=== PATIENT | male | born 1940 | race Caucasian/White ===

== ENCOUNTER 2020-09-19 09:33 | Outpatient (REF) | payer MEDICARE, SELFPAY ==
[2020-09-19 10:26] LABS: MANUAL DIFF FLAG NO
[2020-09-19 10:42] LABS: Basophils Percent Auto 0.8 % (0-2); Eosinophils Absolute Auto 0.4 X10*3/uL (0.0-0.4); Eosinophils Percent Auto 7.1 % (0-4); Hematocrit 46.6 % (42-52); Hemoglobin 15.3 g/dl (14.0-18.0); Imm Gran Abs Auto 0.01 X10*3/uL (0.00-0.03); Imm Gran Pct Auto 0.2 % (0.0-0.4); Lymphocytes Percent Auto 41.2 % (20-40); Mean Corpuscular HGB Conc 32.8 g/dl (31.0-36.0); Mean Corpuscular Hemoglobin 30.4 pg (27.0-33.0); Mean Corpuscular Volume 92.6 fL (80-98); Mean Platelet Volume 11.5 fL (9.4-12.4); Monocytes Absolute Auto 0.5 X10*3/uL (0.1-1.2); Monocytes Percent Auto 10.4 % (2-11); Neutrophils Percent Auto 40.3 % (45-73); Platelet Count 186 X10*3/uL (160-400); Red Blood Count 5.03 X10*6/uL (4.60-5.80); Red Cell Distribution Width 12.7 % (11.0-16.0); White Blood Count 4.9 X10*3/uL (4.8-10.8)
[2020-09-19 11:01] LABS: Glucose Urine UA NEG (NEG); Leukocyte Esterase Urine NEG (NEG); Nitrite Urine NEG (NEG); Specific Gravity - Urine 1.025 (1.005-1.025); Urine Blood NEG (NEG); Urine Ketones NEG (NEG); Urine Protein NEG (NEG-TRACE)
[2020-09-19 11:07] LABS: Appearance Urine CLEAR; Color Urine YELLOW
[2020-09-19 11:09] LABS: Estimated Average Glucose 117 mg/dL; Hemoglobin A1C 149.9693 umol/L; Hemoglobin A1c % 5.7 %
[2020-09-19 11:28] LABS: Alanine Aminotransferase 22 U/L (0-40); Albumin Level 4.3 g/dL (3.5-5.0); Alkaline Phosphatase 106 U/L (39-117); Anion Gap 12 (12-20); Aspartate Amino Transferase 18 U/L (5-37); Bilirubin Total 0.4 mg/dL (0.0-1.0); Blood Urea Nitrogen 23 mg/dL (9-16); Calcium 8.9 mg/dL (8.4-10.2); Carbon Dioxide 26 mmol/L (22-29); Chloride 105 mmol/L (96-108); Cholesterol 231 mg/dL; Estimated Glomerular Filt Rate > 60; Glucose Fasting 93 mg/dL (60-99); HDL Cholesterol 44 mg/dL; LDL Cholesterol Calculated 168 mg/dl; Potassium 4.3 mmol/L (3.3-5.1); Sodium 139 mmol/L (135-145); Total Protein 6.6 g/dL (6.5-8.0); Triglycerides 97 mg/dL
[2020-09-19 11:39] LABS: PSA,Total (Free>4and<10) 1.61 ng/mL (0.00-4.00)
[2020-09-19 11:57] LABS: Creatinine Urine 98.11 mg/dL; Microalbum/Creatinine Ratio Ur 13.2 ug/mg cr
[2020-09-19 13:08] LABS: Reflex LDLD? No
== END 2020-09-19 09:34 | disposition home or self-care (01) ==
LOC: HO.LNP 09:33
PROVIDERS: PCP Internal Medicine; Visit Provider Internal Medicine
DX: Z00.00 Encounter for general adult medical examination without abnormal findings (principal); Z12.5 Encounter for screening for malignant neoplasm of prostate; E78.00 Pure hypercholesterolemia, unspecified; R73.03 Prediabetes; I10 Essential (primary) hypertension
CPT/HCPCS: 80053; 80061; 81003; 82043; 83036; 84153; 85025

== ENCOUNTER 2021-06-20 12:03 | Outpatient (REF) | payer MEDICARE, SELFPAY ==
[2021-06-20 12:30] LABS: Estimated Average Glucose 117 mg/dL; Hemoglobin A1c % 5.7 %
[2021-06-20 12:39] LABS: Alanine Aminotransferase 19 U/L (0-40); Albumin Level 4.4 g/dL (3.5-5.0); Alkaline Phosphatase 111 U/L (39-117); Aspartate Amino Transferase 18 U/L (5-37); Bilirubin Direct 0.3 mg/dL (0.0-0.5); Bilirubin Total 0.9 mg/dL (0.0-1.0); Cholesterol 228 mg/dL; Glucose Fasting 98 mg/dL (60-99); HDL Cholesterol 43 mg/dL; LDL Cholesterol Calculated 165 mg/dl; Total Protein 6.9 g/dL (6.5-8.0); Triglycerides 102 mg/dL
[2021-06-20 12:57] LABS: Reflex LDLD? No
== END 2021-06-20 12:04 | disposition home or self-care (01) ==
LOC: HO.LNP 12:03
PROVIDERS: Visit Provider Internal Medicine
DX: R73.03 Prediabetes (principal); E78.00 Pure hypercholesterolemia, unspecified
CPT/HCPCS: 80061; 80076; 82947; 83036

== ENCOUNTER 2021-08-08 10:41 | Outpatient (REF) | payer MEDICARE, SELFPAY ==
[2021-08-08 10:44] LABS: MANUAL DIFF FLAG NO
[2021-08-08 11:33] LABS: Basophils Absolute Auto 0.1 X10*3/uL (0.0-0.2); Eosinophils Absolute Auto 0.2 X10*3/uL (0.0-0.4); Eosinophils Percent Auto 4.6 % (0-4); Hematocrit 48.2 % (42.0-52.0); Hemoglobin 15.7 g/dl (14.0-18.0); Imm Gran Abs Auto 0.01 X10*3/uL (0.00-0.03); Imm Gran Pct Auto 0.2 % (0.0-0.4); Lymphocytes Absolute Auto 2.2 X10*3/uL (1.2-4.9); Lymphocytes Percent Auto 43.9 % (20-40); Mean Corpuscular HGB Conc 32.6 g/dl (31.0-36.0); Mean Corpuscular Hemoglobin 30.4 pg (27.0-33.0); Mean Corpuscular Volume 93.2 fL (80.0-98.0); Mean Platelet Volume 11.1 fL (9.4-12.4); Monocytes Absolute Auto 0.4 X10*3/uL (0.1-1.2); Monocytes Percent Auto 8.8 % (2-11); Neutrophils Absolute Auto 2.1 x10*3/uL (2.0-8.3); Neutrophils Percent Auto 41.5 % (45-73); Platelet Count 219 X10*3/uL (160-400); Red Blood Count 5.17 X10*6/uL (4.60-5.80); Red Cell Distribution Width 12.7 % (11.0-16.0)
[2021-08-08 11:38] LABS: Estimated Average Glucose 114 mg/dL; Hemoglobin A1c % 5.6 %
[2021-08-08 11:49] LABS: Appearance Urine CLEAR; Color Urine YELLOW; Glucose Urine UA NEG (NEG); Leukocyte Esterase Urine NEG (NEG); Nitrite Urine NEG (NEG); PH 6.5 (5.0-8.0); Urine Blood NEG (NEG); Urine Ketones NEG (NEG); Urine Protein NEG (NEG-TRACE)
[2021-08-08 11:57] LABS: Alanine Aminotransferase 20 U/L (0-40); Albumin Level 4.5 g/dL (3.5-5.0); Alkaline Phosphatase 106 U/L (39-117); Anion Gap 12 (12-20); Aspartate Amino Transferase 19 U/L (5-37); Bilirubin Total 0.6 mg/dL (0.0-1.0); Blood Urea Nitrogen 19 mg/dL (9-16); Calcium 9.4 mg/dL (8.4-10.2); Carbon Dioxide 27 mmol/L (22-29); Chloride 104 mmol/L (96-108); Cholesterol 231 mg/dL; Estimated Glomerular Filt Rate > 60; Glucose Fasting 100 mg/dL (60-99); HDL Cholesterol 44 mg/dL; LDL Cholesterol Calculated 167 mg/dl; Sodium 139 mmol/L (135-145); Triglycerides 100 mg/dL
[2021-08-08 12:37] LABS: Microalbum/Creatinine Ratio Ur 10.6 ug/mg cr
[2021-08-08 13:14] LABS: PSA,Total (Free>4and<10) 1.89 ng/mL (0.00-4.00)
== END 2021-08-08 10:42 | disposition home or self-care (01) ==
LOC: HO.LNP 10:41
PROVIDERS: Visit Provider Internal Medicine
DX: Z00.00 Encounter for general adult medical examination without abnormal findings (principal); Z12.5 Encounter for screening for malignant neoplasm of prostate; R73.03 Prediabetes; E78.00 Pure hypercholesterolemia, unspecified; I10 Essential (primary) hypertension
CPT/HCPCS: 80053; 80061; 81003; 82043; 83036; 84153; 85025

== ENCOUNTER 2022-07-06 10:57 | Outpatient (REF) | payer MEDICARE, SELFPAY ==
[2022-07-06 11:01] LABS: MANUAL DIFF FLAG NO
[2022-07-06 11:44] LABS: Basophils Absolute Auto 0.1 X10*3/uL (0.0-0.2); Basophils Percent Auto 1.4 % (0-2); Eosinophils Absolute Auto 0.3 X10*3/uL (0.0-0.4); Eosinophils Percent Auto 4.9 % (0-4); Hematocrit 50.6 % (42.0-52.0); Hemoglobin 16.7 g/dl (14.0-18.0); Imm Gran Abs Auto 0.02 X10*3/uL (0.00-0.03); Imm Gran Pct Auto 0.4 % (0.0-0.4); Lymphocytes Absolute Auto 2.1 X10*3/uL (1.2-4.9); Lymphocytes Percent Auto 41.6 % (20-40); Mean Corpuscular Hemoglobin 30.1 pg (27.0-33.0); Mean Corpuscular Volume 91.3 fL (80.0-98.0); Mean Platelet Volume 11.3 fL (9.4-12.4); Monocytes Absolute Auto 0.6 X10*3/uL (0.1-1.2); Neutrophils Absolute Auto 2.1 x10*3/uL (2.0-8.3); Neutrophils Percent Auto 40.7 % (45-73); Platelet Count 187 X10*3/uL (160-400); Red Blood Count 5.54 X10*6/uL (4.60-5.80); Red Cell Distribution Width 12.6 % (11.0-16.0); White Blood Count 5.1 X10*3/uL (4.8-10.8)
[2022-07-06 11:54] LABS: Appearance Urine Clear; Color Urine Yellow; Glucose Urine UA Negative (Negative); Leukocyte Esterase Urine Negative (Negative); Nitrite Urine Negative (Negative); PH 6.5 (5.0-9.0); Urine Blood Negative (Negative); Urine Ketones Negative (Negative); Urine Protein Negative (Neg-Trace)
[2022-07-06 12:05] LABS: Estimated Average Glucose 120 mg/dL; Hemoglobin A1c % 5.8 %
[2022-07-06 12:06] LABS: Alanine Aminotransferase 20 U/L (0-40); Albumin Level 4.4 g/dL (3.5-5.0); Alkaline Phosphatase 109 U/L (39-117); Anion Gap 14 (12-20); Aspartate Amino Transferase 19 U/L (5-37); Bilirubin Total 0.9 mg/dL (0.0-1.0); Blood Urea Nitrogen 19 mg/dL (9-16); Calcium 9.4 mg/dL (8.4-10.2); Carbon Dioxide 27 mmol/L (22-29); Chloride 104 mmol/L (96-108); Cholesterol 263 mg/dL; Estimated Glomerular Filt Rate > 60; Glucose Fasting 102 mg/dL (60-99); HDL Cholesterol 46 mg/dL; LDL Cholesterol Calculated 198 mg/dl; Potassium 4.8 mmol/L (3.3-5.1); Sodium 140 mmol/L (135-145); Total Protein 6.8 g/dL (6.5-8.0); Triglycerides 99 mg/dL
[2022-07-06 12:12] LABS: PSA,Total (Free>4and<10) 1.96 ng/mL (0.00-4.00)
[2022-07-06 12:24] LABS: Creatinine Urine 150.88 mg/dL; Microalbum/Creatinine Ratio Ur 7.2 ug/mg cr
== END 2022-07-06 10:58 | disposition home or self-care (01) ==
LOC: HO.LNP 10:57
PROVIDERS: Visit Provider Internal Medicine
DX: Z00.00 Encounter for general adult medical examination without abnormal findings (principal); R73.09 Other abnormal glucose; E78.00 Pure hypercholesterolemia, unspecified; I10 Essential (primary) hypertension; Z12.5 Encounter for screening for malignant neoplasm of prostate
CPT/HCPCS: 80053; 80061; 81003; 82043; 83036; 84153; 85025

== ENCOUNTER 2023-07-12 10:50 | Outpatient (REF) | payer MEDICARE, SELFPAY ==
[2023-07-12 10:53] LABS: MANUAL DIFF FLAG NO
[2023-07-12 11:22] LABS: Appearance Urine Clear; Basophils Percent Auto 0.8 % (0-2); Color Urine Yellow; Eosinophils Absolute Auto 0.3 X10*3/uL (0.0-0.4); Eosinophils Percent Auto 5.1 % (0-4); Glucose Urine UA Negative (Negative); Hematocrit 47.9 % (42.0-52.0); Hemoglobin 15.9 g/dl (14.0-18.0); Imm Gran Abs Auto 0.02 X10*3/uL (0.00-0.03); Imm Gran Pct Auto 0.4 % (0.0-0.4); Leukocyte Esterase Urine Negative (Negative); Lymphocytes Percent Auto 38.9 % (20-40); Mean Corpuscular HGB Conc 33.2 g/dl (31.0-36.0); Mean Corpuscular Hemoglobin 30.4 pg (27.0-33.0); Mean Corpuscular Volume 91.6 fL (80.0-98.0); Mean Platelet Volume 11.2 fL (9.4-12.4); Monocytes Absolute Auto 0.6 X10*3/uL (0.1-1.2); Monocytes Percent Auto 10.9 % (2-11); Neutrophils Absolute Auto 2.3 x10*3/uL (2.0-8.3); Neutrophils Percent Auto 43.9 % (45-73); Nitrite Urine Negative (Negative); PH 6.5 (5.0-9.0); Platelet Count 213 X10*3/uL (160-400); Red Blood Count 5.23 X10*6/uL (4.60-5.80); Red Cell Distribution Width 12.8 % (11.0-16.0); Specific Gravity - Urine 1.025 (1.005-1.025); Urine Blood Negative (Negative); Urine Ketones Negative (Negative); Urine Protein Negative (Neg-Trace); White Blood Count 5.1 X10*3/uL (4.8-10.8)
[2023-07-12 11:33] LABS: Bacteria Urine None Seen (None Seen); Hyaline Casts Urine 0-2 /LPF (0-2); RBC Urine 0-2 /HPF (0-2); Squamous Epithelial Cell Urine 0-2 /HPF (0-2); WBC Urine 0-5 /HPF (0-5)
[2023-07-12 12:02] LABS: Estimated Average Glucose 108 mg/dL; Hemoglobin A1c % 5.4 % (<6.0)
[2023-07-12 12:34] LABS: PSA,Total (Free>4and<10) 1.78 ng/mL (0.00-4.00)
[2023-07-12 12:50] LABS: Creatinine Urine 154.95 mg/dL; Microalbum/Creatinine Ratio Ur 7.7 ug/mg cr (<30)
[2023-07-12 13:06] LABS: Alanine Aminotransferase 19 U/L (0-40); Albumin Level 4.3 g/dL (3.5-5.0); Alkaline Phosphatase 95 U/L (39-117); Anion Gap 10 (12-20); Aspartate Amino Transferase 18 U/L (5-37); Bilirubin Total 0.6 mg/dL (0.0-1.0); Blood Urea Nitrogen 31 mg/dL (9-16); Carbon Dioxide 27 mmol/L (22-29); Chloride 109 mmol/L (96-108); Cholesterol 244 mg/dL (<200); Estimated Glomerular Filt Rate > 60; Glucose Fasting 95 mg/dL (60-99); HDL Cholesterol 45 mg/dL (>40); LDL Cholesterol Calculated 175 mg/dL (<100); Potassium 3.9 mmol/L (3.3-5.1); Sodium 142 mmol/L (135-145); Total Protein 6.7 g/dL (6.5-8.0); Triglycerides 123 mg/dL (<150)
== END 2023-07-12 10:51 | disposition home or self-care (01) ==
LOC: HO.LNP 10:50
PROVIDERS: Visit Provider Internal Medicine
DX: Z00.00 Encounter for general adult medical examination without abnormal findings (principal); R73.03 Prediabetes; E78.00 Pure hypercholesterolemia, unspecified; Z12.5 Encounter for screening for malignant neoplasm of prostate
CPT/HCPCS: 80053; 80061; 81001; 82043; 82570; 83036; 84153; 85025

== ENCOUNTER 2023-08-13 11:23 | Outpatient (REF) | payer MEDICARE, SELFPAY ==
[2023-08-13 12:11] LABS: Blood Urea Nitrogen 21 mg/dL (9-16); Estimated Glomerular Filt Rate > 60
== END 2023-08-13 11:24 | disposition home or self-care (01) ==
LOC: HO.LNP 11:23
PROVIDERS: Visit Provider Internal Medicine
DX: R79.9 Abnormal finding of blood chemistry, unspecified (principal)
CPT/HCPCS: 82565; 84520

== ENCOUNTER 2024-03-07 11:39 | Outpatient (REF) | payer MEDICARE, SELFPAY ==
[2024-03-07 12:48] LABS: Alanine Aminotransferase 25 U/L (0-40); Albumin Level 4.4 g/dL (3.5-5.0); Alkaline Phosphatase 124 U/L (39-117); Aspartate Amino Transferase 26 U/L (5-37); Bilirubin Direct 0.3 mg/dL (0.0-0.5); Bilirubin Total 0.8 mg/dL (0.0-1.0); Blood Urea Nitrogen 15 mg/dL (9-16); Cholesterol 126 mg/dL (<200); Estimated Glomerular Filt Rate > 60; HDL Cholesterol 47 mg/dL (>40); LDL Cholesterol Calculated 68 mg/dL (<100); Triglycerides 56 mg/dL (<150)
[2024-03-07 14:21] LABS: Reflex LDLD? No
== END 2024-03-07 11:40 | disposition home or self-care (01) ==
LOC: HO.LNP 11:39
PROVIDERS: Visit Provider Internal Medicine
DX: E78.00 Pure hypercholesterolemia, unspecified (principal); I10 Essential (primary) hypertension
CPT/HCPCS: 80061; 80076; 82565; 84520

== ENCOUNTER 2024-07-13 10:08 | Outpatient (REF) | payer MEDICARE, SELFPAY ==
[2024-07-13 10:13] LABS: MANUAL DIFF FLAG NO
[2024-07-13 10:51] LABS: Basophils Percent Auto 0.9 % (0-2); Eosinophils Absolute Auto 0.2 X10*3/uL (0.0-0.4); Eosinophils Percent Auto 4.5 % (0-4); Estimated Average Glucose 114 mg/dL; Hematocrit 48.4 % (42.0-52.0); Hemoglobin 16.1 g/dl (14.0-18.0); Hemoglobin A1c % 5.6 % (<6.0); Imm Gran Abs Auto 0.01 X10*3/uL (0.00-0.03); Imm Gran Pct Auto 0.2 % (0.0-0.4); Lymphocytes Percent Auto 41.6 % (20-40); Mean Corpuscular HGB Conc 33.3 g/dl (31.0-36.0); Mean Corpuscular Hemoglobin 30.4 pg (27.0-33.0); Mean Corpuscular Volume 91.5 fL (80.0-98.0); Mean Platelet Volume 11.1 fL (9.4-12.4); Monocytes Absolute Auto 0.4 X10*3/uL (0.1-1.2); Monocytes Percent Auto 8.7 % (2-11); Neutrophils Absolute Auto 2.1 x10*3/uL (2.0-8.3); Neutrophils Percent Auto 44.1 % (45-73); Platelet Count 190 X10*3/uL (160-400); Red Blood Count 5.29 X10*6/uL (4.60-5.80); Red Cell Distribution Width 12.9 % (11.0-16.0); White Blood Count 4.7 X10*3/uL (4.8-10.8)
[2024-07-13 11:02] LABS: Albumin Level 4.4 g/dL (3.5-5.0); Alkaline Phosphatase 109 U/L (39-117); Anion Gap 9 (12-20); Aspartate Amino Transferase 28 U/L (5-37); Bilirubin Total 0.6 mg/dL (0.0-1.0); Blood Urea Nitrogen 19 mg/dL (9-16); Calcium 9.2 mg/dL (8.4-10.2); Carbon Dioxide 26 mmol/L (22-29); Chloride 109 mmol/L (96-108); Cholesterol 150 mg/dL (<200); Estimated Glomerular Filt Rate > 60; Glucose Fasting 92 mg/dL (60-99); HDL Cholesterol 47 mg/dL (>40); LDL Cholesterol Calculated 86 mg/dL (<100); Potassium 4.2 mmol/L (3.3-5.1); Sodium 140 mmol/L (135-145); Total Protein 7.3 g/dL (6.5-8.0); Triglycerides 87 mg/dL (<150)
[2024-07-13 11:11] LABS: PSA,Total (Free>4and<10) 1.96 ng/mL (0.00-4.00)
[2024-07-13 11:27] LABS: Creatinine Urine 89.75 mg/dL
[2024-07-13 11:43] LABS: Appearance Urine Clear; Color Urine Yellow; Glucose Urine UA Negative (Negative); Leukocyte Esterase Urine Negative (Negative); Nitrite Urine Negative (Negative); Specific Gravity - Urine 1.015 (1.005-1.025); Urine Blood Negative (Negative); Urine Ketones Negative (Negative); Urine Protein Negative (Neg-Trace)
[2024-07-13 11:45] LABS: Bacteria Urine None Seen (None Seen); Hyaline Casts Urine 0-2 /LPF (0-2); RBC Urine 0-2 /HPF (0-2); Squamous Epithelial Cell Urine 0-2 /HPF (0-2); WBC Urine 0-5 /HPF (0-5)
[2024-07-13 11:54] LABS: Alanine Aminotransferase 28 U/L (0-40)
--- OUTSIDE RECORDS SUMMARY | 2024-07-13 12:37 | XMS_ITS ---
Author Organization Ja Watson MD Address [address] [place] [phone] Care Team Providers Care Mine Wirer Name Role Phone Ja Watson Primary Care Provider REASON FOR VISIT refill Valsartan Medications Medication SIG (Take, Route, Fr equency, Duration) Notes Start Date End Date Status Valsartan 80 MG 1 tablet Orally thre e times a week for 30 days Active Encounters Encounter Location Date Provider Diagnosis Ja Watson MD [address] [place] [phone] 06/09/2024 Ja Watson Labile hypertension I10 Assessments Encounter Date Diagnosis (ICD Code) Assessment Notes Treatment Notes Treatment Clinical Notes Section Notes 06/09/2024 Labile hypertension (ICD-10 - I10) Plan Of Treatment Medication Medication Name Sig Start Date Stop Date Notes Valsartan 80 MG 1 tablet Orally thre e times a week for 30 days Next Appt Details Provider Name:Ja blakely, 07/20/2024 10:00:00 AM, [address], [address] [place] [address], [phone], Progress Notes * Uziel BRAY GDOB: [birth year] (84 yo M)Acc No.[id number]:06/09/2024 Patient:?Uziel BRAY :1940???Age:84 Y???Sex:Male Address:[address] [place] [address], [place] [address] * Refills? Refill Valsartan Tablet, 80 MG, Orally, 30, 1 tablet, three times a week, 30 days * true * Date:? Generated for Harlan bosch/Joaquim/eTdamiansmitting on:?07/13/2024 12:37 PM EDT
--- OUTSIDE RECORDS SUMMARY | 2024-07-13 12:38 | XMS_ITS ---
Author Organization Ja Watson MD Address [address] [place] [phone] Care Team Providers Care Diagnostics Tech Name Role Phone Ja Watson Primary Care Provider [phone] Allergies Allergen (clinical drug ingredient) Drug/Non Drug Allergy documented on EMR Reaction Allergy Type Onset Date Status atorvastatin Lipitor myalgia Drug Allergy Acti ve rosuvastatin Crestor myalgia Drug Allergy Acti ve penicillin (uncoded) rash Allergy Active REASON FOR VISIT 6 month Medications Medication SIG (Take, Route, Frequency, Duration) Notes Start Date End Date Status Valsartan 80 MG 1 tablet Orally thre e times a week Active Tamsulosin HCl 0.4 MG 1 capsule Orally O nce a day for 30 days 03/14/2024 Active Rosuvastatin Calcium 10 MG 1 tablet Orally Once a day 07/20/2023 Active ProAir Respiclick (albuterol Sulfate Inhailation Powder) 90 mcg 1 to 2 inhailations by mouth every 4 to 6 hours as needed for 30 days 05/06/2018 Not-Taking Aspir-Low 81 MG 1 tablet Orally Once a day for 30 day(s) Not-Taking Problems Problem Type SNOMED Code ICD Code Onset Dates Problem Status W/U Status Risk Notes Problem 00856138 Memory loss (R41.3) Active confirmed Problem 54978527 Prostatism (N40.0) Active confirmed Vital Signs Blood pressure systolic 122 mm Hg 03/14/20 24 Blood pressure diastolic 64 mm Hg 024 Height 66.5 in 03/14/2024 Weight 168 lbs 03/14/2024 BMI 26.71 kg/m2 03/14/2024 weight is down 8 pounds [facility] 08-24-23 Encounters Encounter Location Date Provider Diagnosis Ja Watson MD [address] [place], [place] [phone] 03/14/2024 Ja Watson Prediabetes R73.09 ; Pure hypercholesterolemia E78.00 ; Memory loss R41.3 ; 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 ; Prostatism N40.0 and Labile hypertension I10 Assessments Encounter Date Diagnosis (ICD Code) Assessment Notes Treatment Notes Treatment Clinical Notes Section Notes 03/14/2024 Prediabetes (ICD-10 - R73.09) stable, will continue current regiment 03/14/2024 Pure hypercholesterolemia (ICD-10 - E78.00) doing well, will continue current regiment 03/14/2024 Memory loss (ICD-10 - R41.3) sounds like is normal loss, will continue to observe 03/14/2024 Superficial varicosities (ICD-10 - I83.90) will continue to monitor 03/14/2024 Prostatism (ICD-10 - N40.0) patient verbalized understanding of medication and directions for use 03/14/2024 Labile hypertension (ICD-10 - I10) Plan Of Treatment Medication Medication Name Sig Start Date Stop Date Notes Valsartan 80 MG 1 tablet Orally thre e times a week Tamsulosin HCl 0.4 MG 1 capsule Orally O nce a day for 30 days 03/14/2024 Rosuvastatin Calcium 10 MG 1 tablet Orally Once a day 07/01 Treatment Notes Assessment Notes Prediabetes stable, will continu e current regiment Pure hypercholesterolemia doing well, wi ll continue current regiment Memory loss sounds like is karyn l loss, will continue to observe Superficial varicosities will continue t o monitor Prostatism patient verbalized u nderstanding of medication and directions for use Pending Test Test Name Order Date Hemoglobin A1c 03/14/2024 Glucose, finger stick 03/14/2024 Next Appt Details Provider Name:Ja Vogel ier, 07/20/2024 10:00:00 AM, [address], [address], [place], [phone], Progress Notes * PRASANTHUziel BOLES GDOB: [birth year] (83 yo M)Acc No.[id number]:03/14/2024 Progress Notes Patient:?Uziel Bray Provider:?Ja Watson MD :1940???Age:83 Y???Sex:Male Leandro e:03/14/2024 Address:[address] [place] [address] [place] [id number] Subjective: * Chief Complaints: * ???6 month * HPI: ???Symptom(s):? patient is a 83 yo male here for 6 month follow up of bp and cholesterol. * ROS:?General/Constitutional:?Denies?Chills.?Denies?Fatigue.?Denies?Fever.?Denies?Headache.?ENT:?Patient denies?decreased sense of smell , any loss of taste , sore throat.?Denies?Sore throat.?Respiratory:?Denies?Cough.?Denies?Shortness of breath at rest.?Denies?Shortness of breath with exertion.?Cardiovascular:?Denies?Chest pain at rest.?Denies?Chest pain with exertion.?Denies?Dizziness.?Denies?Palpitations.?Denies?Shortness of breath.?Gastrointestinal:?Denies?Diarrhea.?Denies?Nausea.?Musculoskeletal:?Patient denies?muscle aches.?Peripheral Vascular:?Patient denies?red and blue toes.?Skin:?Patient complaining of?lesion on left shoulder is a little bigger.?patient has some tingling in feet and has varicose veins on leg. * Medical History:? * Surgical History:? * Hospitalization/Major Diagno stic Procedure:? * Medications:?TakingValsartan 80 MG Tablet 1 tablet Orally three times a weekRosuvastatin Calcium 10 MG Tablet 1 tablet Orally Once a dayTaking Valsartan 80 MG Tablet 1 tablet Orally three times a weekTaking Rosuvastatin Calcium 10 MG Tablet 1 tablet Orally Once a dayNot-Taking/PRNAspir-Low 81 MG Tablet Delayed Release 1 tablet Orally Once a dayProAir Respiclick (albuterol Sulfate Inhailation Powder) 90 mcg Inhalation Powder 1 to 2 inhailations by mouth every 4 to 6 hours as neededMedication List reviewed and reconciled with the patientNot-Taking/PRN Aspir-Low 81 MG Tablet Delayed Release 1 tablet Orally Once a dayNot-Taking/PRN ProAir Respiclick (albuterol Sulfate Inhailation Powder) 90 mcg Inhalation Powder 1 to 2 inhailations by mouth every 4 to 6 hours as neededMedication List reviewed and reconciled with the patient * Allergies:?penicillin: rashC restor: myalgiaLipitor: myalgiayes[Allergies Verified] Objective: * Vitals:?Ht: 66.5, Wt:168, BM I:26.71, BP:122/64 weight is down 8 pounds since 08-24-23. * ???Past Orders: ???Lab:Creatinine (Order Leandro e - 03/07/2024) (Collection Date - 03/07/2024) ? Value Reference Range ?Creatinine 1.05 0.5-1.4 - mg/dL ?Estimated Glomerular Filt Rate > 60 - ???Lab:Lipid Panel with Refl ex (Order Date - 03/07/2024) (Collection Date - 03/07/2024) ? Value Reference Range ?Triglycerides 56 <150 - mg/dL ?Cholesterol 126 <200 - m g/dL ?LDL Cholesterol Calculated 68 <100 - mg/dL ?HDL Cholesterol 47 >40 - mg/dL ???Lab:Arnold Lemus (Order Date - 03/07/2024) (Collection Date - 03/07/2024) ? Value Reference Range ?Arnold Lemus See Note - ???Lab:Liver Panel (Order Da 03/07/2024) (Collection Date - 03/07/2024) ? Value Reference Range ?Bilirubin Total 0.8 0.0- 1.0 - mg/dL ?Bilirubin Direct 0.3 0.0 -0.5 - mg/dL ?Aspartate Amino Transferase 26 5-37 - U/L ?Alanine Aminotransferase 25 0-40 - U/L ?Total Protein 7.0 6.5-8. 0 - g/dL ?Albumin Level 4.4 3.5-5. 0 - g/dL ?Alkaline Phosphatase 124 H 39-117 - U/L ???Lab:Blood Urea Nitrogen ( Order - 03/07/2024) (Collection Date - 03/07/2024) ? Value Reference Range ?Blood Urea Nitrogen 15 9-16 - mg/dL * Examination: ???General Examination: ?GENERAL APPEARANCE:?well developed, well nourished.?HEAD:?normocephalic.?SKIN:?left shoulder with a sebkeratois.?HEART:?regular rate and rhythm , no murmurs, rubs, gallops.?LUNGS:?no wheezes, rales, rhonchi , good air movement , clear to auscultation bilaterally.? 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 Plan: * Treatment: 2.?Prediabetes?LAB: Hemoglobin A1c ?LAB: Glucose, finger stick Notes: stable, will continue current regiment?? 3.?Memory loss? Notes: sounds like is normal loss, will continue to observe?? 4.?Superficial varicosities? Notes: will continue to monitor?? 5.?Prostatism? Start Tamsulosin HCl Capsule, 0.4 MG, 1 capsule, Orally, Once a day, 30 days, 30, Refills 6.?? Notes: patient verbalized understanding of medication and directions for use?? 6.?Labile hypertension? Continue Valsartan Tablet, 80 MG, 1 tablet, Orally, three times a week.?? * Procedure Codes:?95815 ASSAY , GLUCOSE, BLOOD QUANT, Modifiers: QW 24356 GLYCATED HEMOGLOBIN TEST, Modifiers: QW * * Sign off status: Completed true * Provider:?Ja Watson MD Date:?05/14/2023 Generated for Harlan bosch/Joaquim/eTransmitting on:?07/13/2024 12:37 PM EDT History and Physical Notes * HPI (History of Present Illness) Category Sub-Category Detail Notes Category Not es Symptom(s) patient is a 83 yo male here for 6 month follow up of bp and cholesterol Examination Category Sub-Category Detail Notes Category Not es General Examination GENERAL APPEARANCE: well developed , well nourished HEAD: normocephalic HEART: regular rate and rhy thm , no murmurs, rubs, gallops LUNGS: no wheezes, rales, r honchi , good air movement , clear to auscultation bilaterally SKIN: left shoulder with a sebkeratois
--- OUTSIDE RECORDS SUMMARY | 2024-07-13 12:38 | XMS_ITS ---
Author Organization Ja Watson MD Address [address] [place] [phone] Care Team Providers Care Online Publisher Name Role Phone Ja Watson Primary Care Provider [phone] Results Component Value Reference Range Notes Complete Blood Count Auto Di ff (Not yet reviewed by provider) Interpretation: Performing Lab:[facility], [address] [place] [phone] Notes/Report: White Blood Count 4.7 4.8-10.8 X10*3/uL Red Blood Count 5.29 4.60-5.80 X10*6/uL Hemoglobin 16.1 14.0-18.0 g/dl Hematocrit 48.4 42.0-52.0 % Mean Corpuscular Volume 91.5 80.0-98.0 fL Mean Corpuscular Hemoglobin 30.4 27.0-33.0 pg Mean Corpuscular HGB Conc 33.3 31.0-36.0 g/dl Red Cell Distribution Width 12.9 11.0-16.0 % Platelet Count 190 160-400 X10*3/uL Mean Platelet Volume 11.1 9.4-12.4 fL Neutrophils Percent Auto 44.1 45-73 % Imm Gran Pct Auto 0.2 0.0-0.4 % Lymphocytes Percent Auto 41.6 20-40 % Monocytes Percent Auto 8.7 2-11 % Eosinophils Percent Auto 4.5 0-4 % Basophils Percent Auto 0.9 0-2 % NRBC Pct Auto 0.0 0.0-0.2 /100WBC Neutrophils Absolute Auto 2.1 2.0-8.3 x10*3/u L Imm Gran Abs Auto 0.01 0.00-0.03 X10*3/uL Lymphocytes Absolute Auto 2.0 1.2-4.9 X10*3/u L Monocytes Absolute Auto 0.4 0.1-1.2 X10*3/uL Eosinophils Absolute Auto 0.2 0.0-0.4 X10*3/u L Basophils Absolute Auto 0.0 0.0-0.2 X10*3/uL NRBC Abs Auto 0.000 0.0-0.012 X10*3/uL Comprehensive [place]. Panel Fa st (Not yet reviewed by provider) Interpretation: Performing Lab:[facility], [address] [place] [phone] Notes/Report: Sodium 140 135-145 mmol/L Potassium 4.2 3.3-5.1 mmol/L Chloride 109 96-108 mmol/L Carbon Dioxide 26 22-29 mmol/L Anion Gap 9 12-20 Blood Urea Nitrogen 19 9-16 mg/dL Creatinine 1.00 0.5-1.4 mg/dL Estimated Glomerular Filt Rate > 60 Chronic Kidney Disease: Estimated GFR < 60 mL/min/1.73m2 Severe Kidney Disease: Estimated GFR < 15 mL/min/1.73m2 Glucose Fasting 92 60-99 mg/dL Calcium 9.2 8.4-10.2 mg/dL Bilirubin Total 0.6 0.0-1.0 mg/dL Aspartate Amino Transferase 28 5-37 U/L Alanine Aminotransferase 28 0-40 U/L Total Protein 7.3 6.5-8.0 g/dL Albumin Level 4.4 3.5-5.0 g/dL Alkaline Phosphatase 109 39-117 U/L Lipid Panel (Not yet reviewe d by provider) Interpretation: Performing Lab:[address] [phone] Notes/Report: Triglycerides 87 <150 mg/dL Desirable Triglyceride: less than 150 mg/dL Borderline High Triglyceride 150-199 mg/dL High Triglyceride: 200-499 mg/dL Very High Triglyceride: greater than or equal to 5OO mg/dL Cholesterol 150 <200 mg/dL Desirable Cholesterol: less than 200 mg/dL Borderline High Cholesterol: 200-239 mg/dL High Cholesterol: greater than 239 mg/dL LDL Cholesterol Calculated 86 <100 mg/dL Desirable LDL: less than 100 mg/dL Near Optimal/Above Optimal LDL: 110-129 mg/dL Borderline High LDL: 130-159 mg/dL High LDL: 160-189 mg/dL Very High LDL: greater than or equal to 190 mg/dL HDL Cholesterol 47 >40 mg/dL Desirable HDL: greater than 40 mg/dL Note: This HDL assay may give artificially low results in patients with liver disease. PSA,Total (Free>4and<10) (No t yet reviewed by provider) Interpretation: Performing Lab:[address] [phone] Notes/Report: PSA,Total (Free>4and<10) 1.96 0.00-4.00 ng/mL A Free PSA was not performed: The percentage of Free PSA can be used to enhance the differentiation of prostate cancer from benign prostatic disease in subjects whose PSA levels are between 4.0 and 10.0 ng/mL. For subjects whose PSA levels are below 4.0 or above 10.0 ng/mL, the risk of prostate cancer is determined on the basis of the PSA alone. Therefore the % Free PSA is recommended only for those subjects whose PSA levels are between 4.0 and 10.0 ng/mL. PSA methodology: Llamas Alinity i Chemiluminescent Microparticle Immunoassay (CMIA) Microalbumin, Random (Not ye t reviewed by provider) Interpretation: Performing Lab:[address] [phone] Notes/Report: Creatinine Urine 89.75 Microalbumin Urine 9.0 Microalbum/Creatinine Ratio Ur 10.0 <30 ug/mg cr Albumin/Creatinine Ratio Reference Ranges: Normal: < 30 ug/mg creatinine Microalbuminuria: 30 - 300 ug/mg creatinine Clinical Albuminuria: > 300 ug/mg creatinine Hemoglobin A1c (Not yet revi ewed by provider) Interpretation: Performing Lab:[facility], [address] [place] [phone] Notes/Report: Hemoglobin A1c % 5.6 <6.0 % Hemoglobin A1C Reference Range Adults: 4.8 - 6.0 % Non diabetic: < 6.0 % Goal: < 7.0 % Additional Action Suggested: > 8.0 % Note: Hemoglobin A1c results are invalid for patients with abnormal amounts of HbF. Blood transfusions may impact the HbA1c concentration in the patient sample. Estimated Average Glucose 114 eAG = Estimated average glucose which is %A1C expressed as average glucose, using the formula of the A4D-Jicifwt Average Glucose study (ADAG), Diabetes Care, Vol.31,#8, 2007 UA ClnCatch+Micro w/rflx Cul t (Not yet reviewed by provider) Interpretation: Performing Lab:[facility], [address] [place] [phone] Notes/Report: Urine, Clean Catch Color Urine Yellow Appearance Urine Clear PH 6.0 5.0-9.0 Glucose Urine UA Negative Negative mg/dL Urine Blood Negative Negative Specific [place] - Urine 1.015 1.005-1.025 Urine Protein Negative Neg-Trace mg/dL Urine Ketones Negative Negative mg/dL Nitrite Urine Negative Negative Leukocyte Esterase Urine Negative Negative RBC Urine 0-2 0-2 /HPF WBC Urine 0-5 0-5 /HPF Squamous Epithelial Cell Urine 0-2 0-2 /HPF Bacteria Urine None Seen None Seen Hyaline Casts Urine 0-2 0-2 /LPF REASON FOR VISIT fasting yearly labs Encounters Encounter Location Date Provider Diagnosis Ja Watson MD [address] [place] [address] Drive [address] [place], [place] [phone] 07/13/2024 Ja Watson Blood tests for rout ine general physical examination Z00.00 ; Prediabetes R73.09 ; Pure hypercholesterolemia E78.00 ; Labile hypertension I10 and Prostatism N40.0 Assessments Encounter Date Diagnosis (ICD Code) Assessment Notes Treatment Notes Treatment Clinical Notes Section Notes 07/13/2024 Blood tests for rout ine general physical examination (ICD-10 - Z00.00) 07/13/2024 Prediabetes (ICD-10 - R73.09) 07/13/2024 Pure hypercholesterolemia (ICD-10 - E78.00) 07/13/2024 Labile hypertension (ICD-10 - I10) 07/13/2024 Prostatism (ICD-10 - N40.0) Plan Of Treatment Pending Test Test Name Order Date Complete Blood Count Auto Diff Comprehensive [place]. Panel Fast Lipid Panel 07/13/2024 PSA,Total (Free>4and<10) 07/13/2024 Microalbumin, Random 07/13/2024 Hemoglobin A1c 07/13/2024 UA ClnCatch+Micro w/rflx Cult 07/13/2024 Next Appt Details Provider Name:Ja Vogel ier, 07/20/2024 10:00:00 AM, [address] [place] [address], [address], [place], [place], [phone], Progress Notes * PRASANTHUziel BOLES GDOB: [birth year] (84 yo M)Acc No.[id number]:07/13/2024 Progress Note Patient:?Uziel BRAY Provider:?Ja Watson MD :1940???Age:84 Y???Sex:Male Leandro e:07/13/2024 Address:[address] [place], [place] [phone] Subjective: * Chief Complaints: * ???1. Fasting yearly labs. * Medical History:? Objective: * Vitals:? Assessment: * Assessment: 1.?Blood tests for routine g eneral physical examination - Z00.00 (Primary)???2.?Prediabetes - R73.09???3.?Pure hypercholesterolemia - E78.00???4.?Labile hypertension - I10???5.?Prostatism - N40.0??? Plan: * Treatment: 2.?Prediabetes?LAB: Complete Blood Count Auto Diff (Collection Date & Time - 07/13/2024 08:15 AM) ?LAB: Comprehensive [place]. Panel Fast (Collection Date & Time - 07/13/2024 08:15 AM) ?LAB: Lipid Panel (Collection Date & Time - 07/13/2024 08:15 AM) ?LAB: PSA,Total (Free>4and<10) (Collection Date & Time - 07/13/2024 08:15 AM) ?LAB: Microalbumin, Random (Collection Date & Time - 07/13/2024 08:15 AM) ?LAB: Hemoglobin A1c (Collection Date & Time - 07/13/2024 08:15 AM) ?LAB: UA ClnCatch+Micro w/rflx Cult (Collection Date & Time - 07/13/2024 08:15 AM) 3.?Pure hypercholesterolemia ?LAB: Complete Blood Count Auto Diff (Collection Date & Time 07/13/2024 08:15 AM) ?LAB: Comprehensive [place]. Panel Fast (Collection Date & Time - 07/13/2024 08:15 AM) ?LAB: Lipid Panel (Collection Date & Time 07/13/2024 08:15 AM) ?LAB: PSA,Total (Free>4and<10) (Collection Date & Time - 07/13/2024 08:15 AM) ?LAB: Microalbumin, Random (Collection Date & Time 07/13/2024 08:15 AM) ?LAB: Hemoglobin A1c (Collection Date & Time 07/13/2024 08:15 AM) ?LAB: UA ClnCatch+Micro w/rflx Cult (Collection Date & Time 07/13/2024 08:15 AM) 4.?Labile hypertension?LAB: Complete Blood Count Auto Diff (Collection Date & Time - 07/13/2024 08:15 AM) ?LAB: Comprehensive [place]. Panel Fast (Collection Date & Time 07/13/2024 08:15 AM) ?LAB: Lipid Panel (Collection Date & Time 07/13/2024 08:15 AM) ?LAB: PSA,Total (Free>4and<10) (Collection Date & Time - 07/13/2024 08:15 AM) ?LAB: Microalbumin, Random (Collection Date & Time - 07/13/2024 08:15 AM) ?LAB: Hemoglobin A1c (Collection Date & Time - 07/13/2024 08:15 AM) ?LAB: UA ClnCatch+Micro w/rflx Cult (Collection Date & Time - 07/13/2024 08:15 AM) 5.?Prostatism?LAB: Complete Blood Count Auto Diff (Collection Date & Time - 07/13/2024 08:15 AM) ?LAB: Comprehensive [place]. Panel Fast (Collection Date & Time - 07/13/2024 08:15 AM) ?LAB: Lipid Panel (Collection Date & Time - 07/13/2024 08:15 AM) ?LAB: PSA,Total (Free>4and<10) (Collection Date & Time - 07/13/2024 08:15 AM) ?LAB: Microalbumin, Random (Collection Date & Time - 07/13/2024 08:15 AM) ?LAB: Hemoglobin A1c (Collection Date & Time - 07/13/2024 08:15 AM) ?LAB: UA ClnCatch+Micro w/rflx Cult (Collection Date & Time - 07/13/2024 08:15 AM) * Procedure Codes:?60066 VENIP UNCT, ROUTINE* * * The named appointment provid er may or may not be the originator of this progress note, and it is not deemed complete until electronically signed by the appointment provider. Sign off status: Pending * Provider:?Ja Watson MD Date:?0 07/13/2024 Generated for Harlan bosch/Joaquim/eTransmitting on:?07/13/2024 12:37 PM EDT
== END 2024-07-13 10:09 | disposition home or self-care (01) ==
LOC: HO.LNP 10:08
PROVIDERS: Visit Provider Internal Medicine
DX: Z00.00 Encounter for general adult medical examination without abnormal findings (principal); R73.09 Other abnormal glucose; E78.00 Pure hypercholesterolemia, unspecified; I10 Essential (primary) hypertension; N40.0 Benign prostatic hyperplasia without lower urinary tract symptoms; Z12.5 Encounter for screening for malignant neoplasm of prostate
CPT/HCPCS: 80053; 80061; 81001; 82043; 82570; 83036; 84153; 85025